=== PATIENT | male | born 1935 | race Caucasian/White ===

== ENCOUNTER 2019-08-28 09:19 | Outpatient (CLI) | payer MEDICARE, OTHER ==
[2019-08-28 11:13] LABS: #Eosinphils 0.3 thou/uL (0.0-0.7); #Lymphocytes 1.3 thou/uL (1.20-3.40); #Monocytes 0.8 thou/uL (0.11-0.59); #Neutrophils 3.6 thou/uL (1.40-6.50); %Basophils 0.6 % (0.0-1.0); %Eosinophils 4.8 % (0.0-10.0); %Lymphocytes 21.8 % (21.0-51.0); %Monocytes 12.5 % (0.0-10.0); %Neutrophils 60.3 % (42.0-75.0); Hemoglobin 13.9 g/dL (14.0-18.0); Mean Corpuscular HGB CONC 33.4 g/dL (32.0-36.0); Mean Corpuscular Volume 95.6 fL (78.0-98.0); Mean Platelet Volume 8.1 fL (7.4-10.4); Platelet Count 167 thou/uL (130-400); RBC Distribution Width 12.8 % (11.5-14.5); Red Blood Cell (RBC) Count 4.34 mill/uL (4.70-6.10)
[2019-08-28 11:37] LABS: Anion Gap 15 mmol/L (10-20); BUN (Urea Nitrogen) 22 mg/dL (8.4-25.7); Calc. Creatinine Clearance 0 mL/min (70-130); Calcium 9.5 mg/dL (7.8-10.44); Carbon Dioxide 24 mmol/L (23-31); Chloride 107 mmol/L (98-107); Estimated GFR-MDRD 55; Glucose 108 mg/dL (83-110); Potassium 5.7 mmol/L (3.5-5.1); Sodium 140 mmol/L (136-145)
== END 2019-08-28 09:20 | disposition home or self-care (01) ==
LOC: LABBT 09:19
PROVIDERS: ATTEND Internal Medicine Cardiovascular Disease
DX: Z01.812 Encounter for preprocedural laboratory examination (principal)
CPT/HCPCS: 80048; 85025

== ENCOUNTER → 2019-08-31 | Day surgery (SDC) | payer MEDICARE, OTHER ==
[2019-08-28 09:46] VITALS: BMI 25.0
[~2019-08-31] MED LIST: CEFAZOLIN 1 GM VIAL ONE; Fentanyl 100 MCG/2 ML VIAL ONE; Iopamidol 370 76% 100 ML VIAL ONE; Iopamidol 370 76% 50 ML VIAL FS ONE; Lidocaine 1% (PF) 30 ML VIAL ONE; Midazolam HCl 2 mg/2 ml Vial ONE
[2019-08-31 07:18] LABS: INR-International Normal Ratio 1.3; PTT 27.4 SEC (22.9-36.1); Prothrombin Time 16.1 SEC (12.0-14.7)
--- NOTE | 2019-08-31 11:53 | RAD ---
EXAM: XR Chest 1 View Portable PROVIDED CLINICAL HISTORY: Cardiac pacing device revision COMPARISON: Comparison images are not currently available FINDINGS: Cardiac and mediastinal silhouette is within normal limits. Median sternotomy changes are seen. Left subclavian cardiac pacing device is noted with lead tips overlying the expected locations of RA and RV. No focal consolidation, pleural fluid or pneumothorax apparent. Apical pleural-parenchymal scarri ng changes are seen. IMPRESSION: No evidence for an acute cardiopulmonary process.
--- NOTE | 2019-09-01 15:45 | CCL ---
PLACEMENT OF A NEW PACEMAKER GENERATOR AND PLACEMENT OF NEW VENTRICULAR LEAD: INDICATION: Pacemaker elective replacement indictor for several months. DESCRIPTION OF PROCEDURE: The patient was brought to the Cardiac Event Security Officer and the left subclavian area was prepped and draped. The patient underwent venography and the left subclavian vein was patent. Patient was then given versed 1 mg and fentanyl 25 mg for continuous moderate conscious sedation with appropriate monitoring. 1% Lidocaine was infiltrated. The pacemaker was explanted using blunt and sharp dissection. Antibiotic solution soaked gauze placed into the pocket. Right atrial lead had P-wave of 1.25, impedance 551, threshold 0.9 volts. The old ventricular lead had a pacing threshold of 2.5 and the decision was made to place a new ventricular lead. J-wire was then placed into the left subclavian vein. Using the 7 Pashto peel away sheath, the new ventricular lead was inserted and advanced into the right ventricular apex and screwed into place. R-wave was 8.75, impedance 703, threshold 1.8 volts. With pacing of the ventricular lead at 10 volts there was no diaphragmatic or muscle stimulation. The tabs on the suture tie-down were removed and the new ventricular lead was secured in place with two sutures of 0 Silk. The antibiotic solution soaked gauze was removed and the pocket was irrigated with copious amounts of antibiotic solution. The leads were attached to the pacemaker generator. The old ventricular lead had a cap placed on it and this was tied down with 0 silk. The pacemaker and the old ventricular lead that was capped were placed into the pocket. The pacemaker was secured in place with one suture of 0 silk. The incision was closed using two layers of running 3-0 Vicryl, one layer of running 4-0 Vicryl. Dermabond was placed. The patient tolerated the procedure well. [facility]ITAL[facility]
== END ==
LOC: CCL 05:57
PROVIDERS: ATTEND Internal Medicine Cardiovascular Disease
PROC: 0JH606Z Insertion of Pacemaker, Dual Chamber into Chest Subcutaneous Tissue and Fascia, Open Approach (ICD-10-PCS; principal; 2019-08-31)
PROC: 02HK3JZ Insertion of Pacemaker Lead into Right Ventricle, Percutaneous Approach (ICD-10-PCS; 2019-08-31)
PROC: 02PA3MZ Removal of Cardiac Lead from Heart, Percutaneous Approach (ICD-10-PCS; 2019-08-31)
PROC: 0JPT0PZ Removal of Cardiac Rhythm Related Device from Trunk Subcutaneous Tissue and Fascia, Open Approach (ICD-10-PCS; 2019-08-31)
DX: Z45.010 Encounter for checking and testing of cardiac pacemaker pulse generator [battery] (principal); I48.91 Unspecified atrial fibrillation; N40.0 Benign prostatic hyperplasia without lower urinary tract symptoms; E78.00 Pure hypercholesterolemia, unspecified; Z79.2 Long term (current) use of antibiotics; Z79.899 Other long term (current) drug therapy
CPT/HCPCS: 33216; 33228; 36005; 71045; 75820; 85610; 85730; 99152; 99153; J0690; J2001; J2250; J3010; Q9967